=== PATIENT | male | born 1950 | race Caucasian/White ===

== ENCOUNTER 2016-10-01 10:13 | Day surgery (SDC) | payer BC ==
[2016-09-27 09:42] VITALS: BMI 39.5
[~2016-10-01 10:13] MED LIST: LACTATED RINGERS 1,000 ML IV SCH
[2016-10-01] MEDS ORDERED: LIDOCAINE 1% 20 ML VIAL (10MG/ML) FOR IV START INTRADERMA ONE (10:33)
[2016-10-01] MEDS ORDERED: LACTATED RINGERS 1,000 ML IV ONE (10:33)
[2016-10-01 10:41] VITALS: TEMP 98
[2016-10-01] MEDS ORDERED: LIDOCAINE 1% INJ 10MG/ML (20 ML MDV) ONE (11:29)
[2016-10-01] MEDS ORDERED: PROPOFOL 10 MG/ML 20 ML VIAL IV ONE (11:29)
--- NOTE | 2016-10-01 12:03 | P.PCN ---
Date of Procedure: 10/01/16 Procedure(s) Performed: Procedure: Total colonoscopy. Preoperative diagnosis: Change in bowel habits. Postoperative diagnosis: Exam within normal limits. Preparation: HalfLytely prep. Sedation: Was provided by anesthesia. Brief clinical history: The patient is a 65-year-old male who is referred for this evaluation because of bowel issues including feeling of incomplete emptying and the need to constantly wipe following a bowel movement. The patient reports family history of colon cancer in his grandfather and he had a colonoscopy with me around 7-8 years ago. This evaluation is to assess for neoplasia or other pathology. Procedure: With the patient on his left lateral decubitus position and after informed consent and adequate sedation, the perianal area was inspected and it did not show any fissures or fistulas. There were no masses felt on digital rectal examination. The Olympus CFQ 160L video colonoscope was then inserted in the rectum in the usual fashion and advanced to the cecum. The preparation was good. The mucosa appeared healthy. No polyps or tumors were seen. No obvious diverticular disease or other pathology. I retroflexed endoscope in the rectum before the endoscope was withdrawn. The patient tolerated the procedure well. Plan: The patient was reassured. Discussed dietary measures. He will follow up with you as planned and further plans can be made based on his course. I recommended a repeat exam in 10 years.
[2016-10-01 12:23] VITALS: BP 145/91; PULSE 75; RESP 18
== END 2016-10-01 12:45 | disposition home or self-care (01) ==
LOC: ORWHC2ENDO 10:13
DX: R19.4 Change in bowel habit (principal); Z80.0 Family history of malignant neoplasm of digestive organs; Z87.891 Personal history of nicotine dependence; E66.9 Obesity, unspecified; Z68.39 Body mass index [BMI] 39.0-39.9, adult
CPT/HCPCS: 45378; J2001; J2704; 99153

== ENCOUNTER → 2018-10-27 | Outpatient (CLI) | payer MEDICARE ==
--- NOTE | 2018-10-27 18:52 | CONS ---
CONSULTATION REASON FOR CONSULTATION: Sleep apnea. 67-year-old male patient, obese who has been feeling fatigued and tired for many years. Used to work at [employer] than he used to drive back and forth from [place] to [place] on a daily basis. He used to feel tired and sleepy on his way back in forth. Never been involved in a motor vehicle accident. He retired recently. He has been feeling somnolent and sleepy and fatigued during the day. He snores. No reported apneas. His weight has been stable at 318 pounds and his BMI is 43.1. He goes to bed around 11 p.m., wakes up at 8 a.m. in the morning. After waking up. He may take a nap during the day. He has excessive nocturia. No family history of obstructive sleep apnea. PAST MEDICAL HISTORY: Obesity. SURGICAL HISTORY: Cholecystectomy. DRUG ALLERGIES: Not known. MEDICATIONS: None. SOCIAL HISTORY: Nonsmoker. No history of alcohol. No history of IV drugs. He is an ex-smoker. FAMILY HISTORY: Negative for sleep apnea. REVIEW OF SYSTEMS: 12-point review of system was done. No history of any insomnia. No choking or gasping for air. No restlessness in lower extremities. No sleepwalking or sleep talking. No anxiety. No depression. No claustrophobia. No sexual dysfunction. No depression. PHYSICAL EXAMINATION: BP is 146/92, pulse 90, respirations 16, temp 97.8, saturation 96% on room air. Weight 318, height is 6 0, neck size is 20 inches and BMI is 43.1. General appearance: Calm, comfortable. Head is atraumatic, normocephalic. NECK: Supple. Mallampati class IV. There is no goiter or neck mass. LUNGS: Diminished breath sounds. Otherwise clear. HEART: Sounds are regular rate and rhythm. Normal S1, S2. No S3. No murmurs. ABDOMEN: Soft, nontender. No organomegaly. EXTREMITIES: No edema. No cyanosis. No clubbing. NEUROLOGIC: Alert and oriented x3. No focal neurological deficits. PSYCHIATRIC: Negative for anxiety or depression. IMPRESSION: 1. Primary snoring, consider obstructive sleep apnea. 2. Hypersomnia, [place] score of 12. 3. Obesity with a body mass index of 43.1. PLAN: We will proceed with a screening polysomnogram and decide on treatment accordingly. There was a quite high suspicion for obstructive sleep apnea in this patient. MMODL / IJN: [id number] /
== END ==
LOC: SLEEP 16:01
PROVIDERS: ATTEND Internal Medicine Critical Care Medicine
DX: G47.10 Hypersomnia, unspecified (principal); E66.9 Obesity, unspecified; Z68.41 Body mass index [BMI] 40.0-44.9, adult
CPT/HCPCS: 99211

== ENCOUNTER → 2018-12-15 | Outpatient (CLI) | payer MEDICARE ==
--- NOTE | 2018-12-15 21:02 | PN ---
PROGRESS NOTE 67-year-old male patient coming in to discuss results of the sleep study. This 67-year- old male patient, morbidly obese. He has very poor sleep hygiene. He was diagnosed having moderately severe obstructive sleep apnea. His AHI was 20.7, worse during REM sleep. Sleep was very much fragmented and his sleep efficiency was 57%. He had delayed sleep onset and frequent nocturnal arousals. Sleep architecture was also abnormal. Based on this, he is discussing treatment options today. His current [place] score at 15. I had a lengthy discussion with him. I came to find out that the patient does not sleep in 1 location. He usually sleeps in the living room. Initially on a recliner and sometimes on the floor and later on during the night he goes to his bed unable to stay in 1 location, he has excessive nocturia and this is also fragmented sleep. No chronic pain. He feels tired and fatigued during the day. tells that he falls asleep even during the day after having a good 6-7 hours of sleep. I had a lengthy discussion with him and at the end of discussion we decided to proceed with CPAP titration to see if the patient will consent for CPAP use in the future. He seems to be more committed at the end of our discussion. His current vitals at this point: PHYSICAL EXAMINATION: BP is 171/88, pulse 80, respirations 16, height is 6 feet 0 inch, weight is 318, BMI 43.1, temperature 98.0. [place] score of 15. General appearance: Calm and comfortable. Head is atraumatic, normocephalic. Neck is supple. Mallampati class IV. There is no goiter or neck mass. Lungs clear to auscultation. Heart sounds are regular rate and rhythm. Normal S1/S2. No murmurs. Abdomen is soft, nontender. No organomegaly. EXTREMITIES: No edema. No cyanosis or clubbing. Neurologically awake and alert x3. No focal neurological deficits. Psychiatric negative for anxiety or depression. SKIN: Negative for any wounds or ulceration. IMPRESSION: 1. Obstructive sleep apnea moderate to severe. AHI of 20.7, worse during REM. 2. Chronic hypersomnia [place] score of 17. 3. Sleep fragmentation. 4. Poor sleep efficiency of 57%. 5. Abnormal sleep architecture. 6. Very poor sleep hygiene. 7. Hypertension. PLAN: I had a lengthy discussion with the patient. At the end of the discussion, the patient seemed to be more committed to our the CPAP therapy. We are going to undergo a CPAP titration and see if this is going to be of any value in terms of clinical improvement for him. He is going to implement good sleep hygiene measures. He will be turning off the TV prior to going to bed. He will be encouraged to go to bed rather than sleeping on a recliner and on the floor. He will be asked to go to bed at the scheduled time. Wake up at scheduled time in the morning, maintain a good sleep schedule and good sleep hygiene measures. Avoid alcoholic beverages. Alcohol avoid caffeinated beverages late at night time. He will be undergoing CPAP titration and based on his tolerability will consider ordering a CPAP machine to him at a later stage. Encourage weight loss. Implement good sleep hygiene measures. Control the cardiovascular risk factors including blood pressure. We will continue to follow. STACIE / FELY: [id number] /
== END ==
LOC: SLEEP 16:07
PROVIDERS: ATTEND Internal Medicine Critical Care Medicine
DX: G47.33 Obstructive sleep apnea (adult) (pediatric) (principal); I10 Essential (primary) hypertension; Z99.89 Dependence on other enabling machines and devices

== ENCOUNTER → 2019-03-09 | Outpatient (CLI) | payer MEDICARE ==
--- NOTE | 2019-03-09 17:46 | PN ---
PROGRESS NOTE Paulie Pino coming to see me for a followup for a compliancy check regarding obstructive sleep apnea. The patient had a poor sleep efficiency of 57%. The patient also had moderately severe obstructive sleep apnea with an AHI of 20. The patient was given APAP, minimum pressure of 6, maximum pressure of 14. Today he is coming in for a compliancy check. He reports marked improvement in sleep quality in general. Sleep efficiency improved. He is able to sleep longer hours. He is awake, alert, much more refreshed and alert during the day. Hypersomnia and sleepiness improved considerably. I checked his compliance data on the machine and the patient has been averaging 5.2 hours of CPAP use per night. His leak factor 4 L/minute while using the AirFit P10 nose pillows. AHI is down to 2 and the patient is very much content with the treatment. He has no specific complaints for now. He wants to continue the treatment and is very much committed. No other complaints otherwise for now. Today I offered him a dream wear under the nose which is something that he would like to consider in the future. REVIEW OF SYSTEMS: A 14-point review of system was done. Positive findings are mentioned above in history of present illness. PHYSICAL EXAMINATION: BP is 140/78, pulse 92, respirations 16, weight is 320, temperature 97.5. Saturation 94% on room air. GENERAL APPEARANCE: Calm, comfortable. HEENT: Head is atraumatic, normocephalic. NECK: Supple. Mallampati class IV. There is no goiter or neck masses. LUNGS: Clear to auscultation. HEART: Sounds regular rate and rhythm. Normal S1, S2. No murmurs. ABDOMEN: Soft, nontender. No organomegaly. EXTREMITIES: No edema. No cyanosis or clubbing. SKIN: Negative for wounds or ulceration. IMPRESSION: 1. Moderately severe obstructive sleep apnea with an AHI of 20.7. The patient is being successfully treated with CPAP. The patient on APAP mode, minimum of 6, maximum of 14. 2. Poor sleep efficiency. Improving. 3. Hypersomnia, improved. 4. Morbid obesity with a BMI of 43.5. PLAN: 1. Encourage weight loss. 2. Continue APAP with a same pressure setting. 3. Continue AirFit P10 nose pillow and offered a Dream wear under the nose as an alternative mask. 4. Implement good sleep hygiene measures. See me back in a year's time in followup, earlier if needed. MMODL / IJN: [id number] /
== END ==
LOC: SLEEP 16:10
PROVIDERS: ATTEND Internal Medicine Critical Care Medicine
DX: G47.33 Obstructive sleep apnea (adult) (pediatric) (principal); E66.9 Obesity, unspecified; Z68.41 Body mass index [BMI] 40.0-44.9, adult; Z99.89 Dependence on other enabling machines and devices

== ENCOUNTER → 2020-06-13 | Outpatient (CLI) | payer MEDICARE ==
--- NOTE | 2020-06-13 16:25 | PN ---
PROGRESS NOTE This is a progress note on a 59-year-old male patient diagnosed with obstructive sleep apnea coming in for an annual check regarding GAMALIEL. The patient has been on APAP with a minimum pressure of 6, maximum pressure of 14 regarding obstructive sleep apnea. He is doing well. He has lost around 3 pounds since last evaluation. He feels that the static pressure is low and he may have some occasional suffocating sensations, especially when he is starting off using his CPAP. Later on, he feels well as the night goes by. Based on a 30 day compliance, the patient utilizes machine almost 80% of the time. He has been averaging a 4.6 hours of CPAP use per night with an average pressure delivered by the machine being at 10.4. Leak is in order of 66 per minute and his AHI is down to 0.9. He is using the AirFit P10 medium-size nasal pillows. Otherwise doing well. He is a former smoker, quit smoking. He has around 25 pack-year smoking history for now. His. REVIEW OF SYSTEMS: Fourteen-point review of system was done. Major no major hypersomnia or sleepiness during the day. Sleep quality is adequate. He has gained no weight. No nocturnal heartburn. No aerophagia. No abdominal distention. No chest pain. No shortness of breath. PHYSICAL EXAMINATION: BP is 151/85, pulse 78, respirations 16, temperature 97.7, saturation 96% on room air. Height is 6, 1, weight is 217. BMI is 41.9. GENERAL APPEARANCE: Calm, comfortable. Head is atraumatic, normocephalic. NECK: Supple. No JVD. No goiter or neck masses. Mallampati class 4. LUNGS: Clear to auscultation. HEART: Heart sounds are regular rate and rhythm, normal S1, S2. No S3, S4. No murmurs. ABDOMEN: Soft, nontender, no organomegaly. EXTREMITIES: No edema, no cyanosis or clubbing. NEUROLOGIC: Awake and alert. There is no focal neurological deficits. PSYCHIATRIC: Negative for anxiety or depression. IMPRESSION: 1. Obstructive sleep apnea, adequately treated with an APAP with the above-mentioned settings. 2. Hypersomnia recovered. 3. Obesity with a BMI of 41.9 with interval 3 pound weight loss. PLAN: 1. Increase the minimum pressure of the APAP up to 8, keep the maximum pressure of 14. 2. Renew the supplies, which would be an AirFit P10 medium-sized nasal pillows. 3. Encourage weight loss. 4. Continue maintaining good sleep hygiene measures and see me back in a year's time in followup. MMODL / IJN: [id number] /
== END | disposition home or self-care (01) ==
LOC: SLEEP 13:18
PROVIDERS: ATTEND Internal Medicine Critical Care Medicine
DX: G47.33 Obstructive sleep apnea (adult) (pediatric) (principal); E66.9 Obesity, unspecified; Z68.41 Body mass index [BMI] 40.0-44.9, adult; Z99.89 Dependence on other enabling machines and devices

== ENCOUNTER → 2021-07-03 | Outpatient (CLI) | payer MEDICARE ==
[2021-07-04 08:53] LABS: African American GFR (CKD) 67.7 (60.0-200.0); Albumin 4.6 g/dL (3.8-4.9); Albumin/Globulin Ratio 2.08 (1.60-3.17); Anion Gap 18.5 mmol/L (4.00-12.00); BUN/Creat Ratio 19.12 Ratio (12.00-20.00); Blood Urea Nitrogen 23.9 mg/dL (9.0-27.0); Calcium 9.8 mg/dL (8.7-10.3); Carbon Dioxide 20.5 mmol/L (21.6-31.8); Chol/HDL Ratio 3.78 Ratio; Globulin 2.2 g/dL (1.6-3.3); HDL Cholesterol 41.3 mg/dL (40.00-60.00); LDL Cholesterol,Calculated 81.5 mg/dL (0.0-131.0); Non-African American GFR(CKD) 58.4 (60.0-200.0); Potassium 4.5 mmol/L (3.5-5.5); Total Bilirubin 0.6 mg/dL (0.30-1.20); Total Protein 6.7 g/dL (6.2-8.2); VLDL Calculation 33.2 mg/dL (5.00-40.00)
== END | disposition home or self-care (01) ==
LOC: LABWHC1 09:15
PROVIDERS: ATTEND Internal Medicine Interventional Cardiology
DX: I10 Essential (primary) hypertension (principal)
CPT/HCPCS: 36415; 80053; 80061

== ENCOUNTER → 2021-12-18 | Outpatient (CLI) | payer MEDICARE ==
--- NOTE | 2021-12-18 16:00 | P.PN ---
Subjective Progress Note Date: 12/18/21 12/18/2021, seeing the patient for a follow-up in regards to his obstructive sleep apnea. A very pleasant 71-year-old male patient with known history of GAMALIEL was currently utilizing APAP therapy at the pressure minimum of 8 and a maximal 14. The treatment has been quite successful over this past several years. The patient has been utilizing the same machine without taking any major difficulties. He is using the Airfit P10 and medium size nasal pillows. On today's evaluation, the patient has no specific complaints. He has maintained his body weight at 320 pounds and there is no significant weight gain or weight loss.no major hypersomnia and sleepiness. His sleep quality is good. He is waking up refreshed and alert during the day. The patient on average has been sleeping around 5.5 hours on his CPAP machineand his CPAP usage for more than 4 hours at 100%. Average pressure delivered by the machine is around 10.8 cm of water and the leak is noted of 7 L per minute and the patient's AHI is down to 0.5.. The patient has no new complaints. No new onset medical problems and/or comorbidities. His medication list remains unchanged. Objective - Exam BP is at 150/91 with a pulse of 77 and the respiration of 16 and a temperature of 96 5 and oxygen saturations are 94% on room air oxygen. Body weight is down 20 pounds. epworth scores at 7. The patient appeared well nourished and normally developed. the patient is morbidly obese and the patient is calm comfortable.Vital signs as documented. Head exam is unremarkable. No scleral icterus or corneal arcus noted. Neck is without jugular venous distension, thyromegaly, or carotid bruits, the patient has a Mallampati class IV.. Carotid upstrokes are brisk bilaterally. Lungs are clear to auscultation and percussion. Cardiac exam reveals the PMI to be normally sized and situated. Rhythm is regular. First and second heart sounds normal. No murmurs, rubs or gallops. Abdominal exam reveals normal bowel sounds, no masses, no organomegaly and no aortic enlargement. Extremities are nonedematous and both femoral and pedal pulses are normal.Examination of the skin revealed no evidence of significant rashes, suspicious appearing nevi or other concerning lesions.Neurologically, the patient is awake and alert and the patient does not have any focal neurological deficit. Cranial nerves are essentially intact. Assessment and Plan Plan: 1 obstructive sleep apnea, continues to see successful CPAP therapy. The patient is on APAP and the compliance data is adequate and the patient is clinically doing well 2 obesity with a BMI of 41.9, weight has remained stable at around 320 pounds 3 chronic hypersomnia, improved [place] score is down to 7 Plan continue APAP therapy pressure minimum of 8 and maximum 14 Keep the patient on a airfit P 10 nasal pillows, medium size, alternatively, I gave him a sample of the N30 I model to try and let me know that something that he would like to use in the future. encourage weight loss Optimize comorbidities Sleep hygiene measures are all adequate Refills will be sent to [facility] Seen back in the time
== END ==
LOC: SLEEP 15:03
PROVIDERS: ATTEND Internal Medicine Critical Care Medicine
DX: G47.33 Obstructive sleep apnea (adult) (pediatric) (principal); E66.01 Morbid (severe) obesity due to excess calories; Z99.89 Dependence on other enabling machines and devices; Z68.41 Body mass index [BMI] 40.0-44.9, adult; Z88.6 Allergy status to analgesic agent; Z87.891 Personal history of nicotine dependence

== ENCOUNTER → 2022-02-06 | Outpatient (CLI) | payer MEDICARE ==
[2022-02-06 18:15] LABS: African American GFR (CKD) 64.1 (60.0-200.0); Anion Gap 11.2 mmol/L (10.00-18.00); BUN/Creat Ratio 15.85 Ratio (12.00-20.00); Blood Urea Nitrogen 20.6 mg/dL (9.0-27.0); Carbon Dioxide 26.8 mmol/L (20.0-27.5); Non-African American GFR(CKD) 55.3 (60.0-200.0); Potassium 3.8 mmol/L (3.5-5.5)
== END | disposition home or self-care (01) ==
LOC: LABWHC1 10:23
PROVIDERS: ATTEND Nurse Practitioner Adult Health
DX: I10 Essential (primary) hypertension (principal)
CPT/HCPCS: 36415; 80048

== ENCOUNTER → 2023-02-07 | Outpatient (CLI) | payer BC, MEDICARE ==
[2023-02-07 15:33] LABS: ALT 45 U/L (10-49); AST 33 U/L (14-35); African American GFR (CKD) 60.8 (60.0-200.0); Albumin 4.4 g/dL (3.8-4.9); Albumin/Globulin Ratio 2.11 (1.60-3.17); Alkaline Phosphatase 90 U/L (41-126); Blood Urea Nitrogen 21.2 mg/dL (9.0-27.0); Carbon Dioxide 27.6 mmol/L (20.0-27.5); Chloride 102 mmol/L (96-109); Chol/HDL Ratio 4.22 Ratio; Globulin 2.1 g/dL (1.6-3.3); Glucose 122 mg/dL (70-110); LDL Cholesterol,Calculated 57.7 mg/dL (0.0-131.0); Non-African American GFR(CKD) 52.5 (60.0-200.0); Potassium 4.2 mmol/L (3.5-5.5); Sodium 141 mmol/L (135-145); Total Protein 6.5 g/dL (6.2-8.2)
== END | disposition home or self-care (01) ==
LOC: LABWHC1 08:02
PROVIDERS: ATTEND Internal Medicine Interventional Cardiology
DX: I10 Essential (primary) hypertension (principal)
CPT/HCPCS: 36415; 80053; 80061

== ENCOUNTER → 2024-02-23 | Outpatient (CLI) | payer MEDICARE ==
[2024-02-23 16:27] LABS: Chol/HDL Ratio 5.06 Ratio
[2024-02-23 16:28] LABS: ALT 48 U/L (10-49); AST 38 U/L (14-35); Albumin 4.5 g/dL (3.8-4.9); Albumin/Globulin Ratio 2.05 Ratio (1.60-3.17); Alkaline Phosphatase 89 U/L (41-126); BUN/Creat Ratio 18.27 Ratio (12.00-20.00); Blood Urea Nitrogen 20.1 mg/dL (9.0-27.0); Carbon Dioxide 23.9 mmol/L (21.6-31.8); Chloride 107 mmol/L (96-109); Globulin 2.2 g/dL (1.6-3.3); Glucose 120 mg/dL (70-110); Potassium 4.1 mmol/L (3.5-5.5); Sodium 144 mmol/L (135-145); Total Bilirubin 0.5 mg/dL (0.3-1.2); Total Protein 6.7 g/dL (6.2-8.2)
[2024-02-23 16:34] LABS: Basophils # (A) 0.08 X 10*3/uL (0.00-0.10); Basophils % (A) 1.2 %; Eosinophils # (A) 0.52 X 10*3/uL (0.04-0.35); Eosinophils % (A) 7.8 %; HCT 48.2 % (39.6-50.0); HGB 15.9 g/dL (13.0-17.0); Lymphocytes # (A) 1.66 X 10*3/uL (0.90-5.00); Lymphocytes % (A) 24.9 %; MCH 28.3 pg (27.0-32.0); MCV 85.9 FL (80.0-97.0); Mean Platelet Volume 11.3 FL (9.5-12.2); Monocytes # (A) 0.62 X 10*3/uL (0.20-1.00); Monocytes % (A) 9.3 %; NRBC Per 100 WBC 0 X 10*3/uL (0.00-0.01); Neutrophils # (A) 3.72 X 10*3/uL (1.80-7.70); Neutrophils % (A) 55.9 %; Platelet Count 200 X 10*3/uL (140-440); RBC 5.61 X 10*6/uL (4.40-5.60); RDW 14.5 % (11.5-14.5); WBC 6.66 X 10*3/uL (4.50-10.00)
== END | disposition home or self-care (01) ==
LOC: LABWHC1 09:30
PROVIDERS: ATTEND Family Medicine
DX: Z00.00 Encounter for general adult medical examination without abnormal findings (principal); Z12.5 Encounter for screening for malignant neoplasm of prostate; G47.33 Obstructive sleep apnea (adult) (pediatric); E66.01 Morbid (severe) obesity due to excess calories; Z68.41 Body mass index [BMI] 40.0-44.9, adult
CPT/HCPCS: 80061; 80053; 84443; 85025; 82306; 83036; 36415; G0103

== ENCOUNTER → 2024-06-09 | Outpatient (CLI) | payer MEDICARE | END | disposition home or self-care (01) | LOC: LABWHC1 08:23 | PROVIDERS: ATTEND Family Medicine | DX: E11.9 Type 2 diabetes mellitus without complications (principal); E55.9 Vitamin D deficiency, unspecified | CPT/HCPCS: 36415; 82306; 83036 ==

== ENCOUNTER → 2024-08-31 | Outpatient (CLI) | payer MEDICARE | END | disposition home or self-care (01) | LOC: LABWHC1 09:11 | PROVIDERS: ATTEND Family Medicine | DX: E11.9 Type 2 diabetes mellitus without complications (principal) | CPT/HCPCS: 36415; 83036 ==